=== PATIENT | male | born 1955 | race Caucasian/White ===

== ENCOUNTER 2017-04-27 08:59 | Day surgery (SDC) | payer BC ==
[~2017-04-27 08:59] MED LIST: CEFAZOLIN 2 Gram 2 GM/50 ML BAG IVPB ONE
[2017-04-27] MEDS ORDERED: MECLIZINE 25 MG TABLET PO ONE (09:00)
[2017-04-27] MEDS ORDERED: EPINEPHRINE 1 MG/ML AMPUL SQ ONE (09:00)
[2017-04-27] MEDS ORDERED: ROCURONIUM BROMIDE 50MG/5ML VIAL IV ONE (09:00)
[2017-04-27] MEDS ORDERED: MIDAZOLAM HCL 2MG/2ML VIAL IV ONE (09:00)
[2017-04-27] MEDS ORDERED: NEOSTIGMINE 1 MG/1 ML,10ML VIAL IV ONE (09:00)
[2017-04-27] MEDS ORDERED: EPHEDRINE SULFATE 50 MG/ML ML IV ONE (09:00)
[2017-04-27] MEDS ORDERED: ACETAMINOPHEN 1,000 MG/100 ML BTL IV ONE (09:00)
[2017-04-27] MEDS ORDERED: SEVOFLURANE 250 ML INH ONE (09:00)
[2017-04-27] MEDS ORDERED: PROPOFOL 10 MG/ML VIAL IV ONE (09:00)
[2017-04-27] MEDS ORDERED: FAMOTIDINE 20MG TABLET PO ONE (09:00)
[2017-04-27] MEDS ORDERED: LIDOCAINE 2% MDV (20MG/ML) 20ML VIAL IV ONE (09:00)
[2017-04-27] MEDS ORDERED: METOCLOPRAMIDE 10 MG TABLET PO ONE (09:00)
[2017-04-27] MEDS ORDERED: ONDANSETRON HCL IV 4 MG/2 ML VIAL IVP ONE (09:00)
[2017-04-27] MEDS ORDERED: ROPIVACAINE HCL (NAROPIN) /PF 5MG/ML 20ML VIAL IV ONE (09:00)
[2017-04-27] MEDS ORDERED: FENTANYL PF 100MCG/2ML VIAL IV ONE (09:00)
[2017-04-27] MEDS ORDERED: DEXAMETHASONE 4 MG/ML 1ML VIAL IVP ONE (09:00)
[2017-04-27] MEDS ORDERED: GLYCOPYRROLATE 0.2 MG/ML ML IV ONE (09:00)
[2017-04-27] MEDS ORDERED: SUCCINYLCHOLINE 20 MG/ML 10ML IVP ONE (09:00)
[2017-04-27] MEDS ORDERED: KETOROLAC 30 MG/ML VIAL IVP ONE (09:00)
[2017-04-27 09:40] LABS: BASO % 1.1 % (0-6); EOS % 6.4 % (0-6); GRAN % 49.6 % (47-80); HEMATOCRIT 45.6 % (42.0-52.0); LYMPH % 32.7 % (16-45); MEAN CELL VOLUME 91.6 fl (81-97); MEAN CORPUSCULAR HEMOGLOBIN 30.1 pg (27-33); MEAN CORPUSCULAR HGB CONC 32.9 g/dl (32-36); MEAN PLATELET VOLUME 11.4 fl (7.4-10.4); MONO % 10.2 % (0-9); PLATELET COUNT 204 K/uL (130-400); RED BLOOD COUNT 4.98 M/uL (4.40-5.70); WHITE BLOOD COUNT W/O DIFF 5.5 K/uL (4.2-12.2)
[2017-04-27 09:50] LABS: BLOOD UREA NITROGEN 20 mg/dL (8-23); CREATININE 0.9 mg/dL (0.7-1.2); EST GLOMERULAR FILTRATION RATE > 60 mL/min; GLUCOSE,RANDOM 96 mg/dL (74-109)
--- NOTE | 2017-04-28 12:30 | Operative Note ---
DATE OF SURGERY: 04/27/2017 Surgeon: Ang Quick DO PREOPERATIVE DIAGNOSES: 1. Tear of the right rotator cuff. 2. Impingement syndrome, right shoulder. POSTOPERATIVE DIAGNOSES: 1. Tear of the right rotator cuff. 2. Impingement syndrome, right shoulder. 3. Tear of the biceps tendon, right shoulder. OPERATION: 1. Arthroscopic repair of the right rotator cuff. 2. Arthroscopic subacromial decompression and acromioplasty of the right shoulder. DESCRIPTION OF PROCEDURE: This 61-year-old male was taken to the operating room, placed in the supine position on the operating room table. A general anesthetic was administered and the patient was placed in the beach chair position with all bony prominences well padded and head well secured. The right shoulder was prepped with Hibiclens and draped in the usual sterile fashion. A posterior portal was established in the glenohumeral joint and initial evaluation of the joint demonstrated normal appearance of the articular cartilage. There was a tear of the supraspinatus tendon ripped away from the articular cartilage on the tuberosity and it appeared as though there was a full-thickness defect but we marked this with a suture to be sure. The biceps tendon appeared normal. We probed the previously repaired glenoid labrum and it was very tight and appeared to be satisfactory. We then placed the arthroscope intact he subacromial space. Our previously marked spot was visible on the bursal surface of the rotator cuff. We marked this spot with an Arthrocare wand. Arthroscopic subacromial decompression and acromioplasty was performed, which gave us excellent visualization and we subsequently debrided the tear of the rotator cuff. It appeared to be a full-thickness tear at the anterior margin possibly just if it was not full thickness, it had very few FiberSource remaining. I was convinced that this was indeed a full-thickness defect. The tuberosity was thoroughly debrided of soft tissue. The torn portion of the rotator cuff also thoroughly debrided, and we felt that the patient had reasonably good quality tendon and subsequently we began to repair this tear using an Arthrex speed bridge technique. Two SwiveLock anchors were placed adjacent to the articular cartilage, one at the anterior and one at the posterior margins of the tear with a FiberTape and TigerTape inserted in the anchors, respectively. Subsequently, the anchors were placed followed by the passage of the sutures through the rotator cuff. A single limb of each one of these sutures was then grasped and placed through a third SwiveLock anchor which was placed inferior to the anterior anchor, traction placed on these sutures, and the anchor impaled. The remaining two tails of sutures were grasped and placed through a fourth SwiveLock anchor which was placed inferior to the posterior anchor and again, tractoin placed on the sutures to bring the cuff down to its anatomic position and footprint on the tuberosity. The repair was felt to be satisfactory. The sutures were cut and the wound irrigated and suctioned. The three portals were repaired with 4-0 nylon sutures. Sterile dressings with an UltraSling were applied and the patient was taken to the recovery room in satisfactory condition. GROSS PATHOLOGY: This patient demonstrated what I felt was a full-thickness defect of the supraspinatus tendon. The patient demonstrated evidence of previous repair of his anterior and superior glenoid labrum which was holding normally and was not loose. Thorough subacromial decompression was also performed as described. EARL
== END 2017-04-27 13:19 | disposition home or self-care (01) ==
LOC: SUR 08:59
PROVIDERS: ATTEND Orthopaedic Surgery
DX: M75.121 Complete rotator cuff tear or rupture of right shoulder, not specified as traumatic (principal); M75.41 Impingement syndrome of right shoulder; E78.00 Pure hypercholesterolemia, unspecified
CPT/HCPCS: 29827; 29826; 29828; 01630; 64415; 85025; 80048; 93005; 93010; J1885; J2405; J3010; J0690; J2795; J0171; J0330; J2710

== ENCOUNTER 2019-04-30 05:54 | Day surgery (SDC) | payer BC ==
[2019-04-30] MEDS ORDERED: DEXAMETHASONE 4 MG/ML 1ML VIAL IVP ONE (05:55)
[2019-04-30] MEDS ORDERED: MIDAZOLAM HCL 2MG/2ML VIAL IV ONE (05:55)
[2019-04-30] MEDS ORDERED: ROPIVACAINE HCL (NAROPIN) /PF 5MG/ML 20ML VIAL IV ONE (05:55)
[2019-04-30] MEDS ORDERED: LIDOCAINE 2% MDV (20MG/ML) 20ML VIAL IV ONE (05:55)
[2019-04-30] MEDS ORDERED: PROPOFOL 10 MG/ML VIAL IV ONE (05:55)
[2019-04-30] MEDS ORDERED: CEFAZOLIN 2 Gram 2 GM/50 ML BAG IVPB ONE (06:00)
[2019-04-30] MEDS ORDERED: METOCLOPRAMIDE 10 MG TABLET PO ONE (06:00)
[2019-04-30] MEDS ORDERED: FAMOTIDINE 20MG TABLET PO ONE (06:00)
[2019-04-30] MEDS ORDERED: MECLIZINE 25 MG TABLET PO ONE (06:00)
[2019-04-30] MEDS ORDERED: RINGERS SOLUTION,LACTATED 1,000 ML IV ONE ×2 (06:40→08:00)
[2019-04-30] MEDS ORDERED: TRANEXAMIC ACID 1,000 MG/10 ML ML IVPB ONE (08:35)
[2019-04-30] MEDS ORDERED: ZOLPIDEM TARTRATE 5 MG TABLET PO PRN (10:15)
[2019-04-30] MEDS ORDERED: NALOXONE 0.4 MG/1 ML VIAL IVP PRN (10:15)
[2019-04-30] MEDS ORDERED: ACETAMINOPHEN 325 MG TAB PO PRN (10:15)
[2019-04-30] MEDS ORDERED: AL HYDROX/MAG HYDROX 30ML UD PO PRN (10:15)
[2019-04-30] MEDS ORDERED: SENNOSIDES/DOCUSATE SODIUM UD CAPSULE PO PRN (10:15)
[2019-04-30] MEDS ORDERED: MAGNESIUM HYDROXIDE 30 ML UDC PO PRN (10:15)
[2019-04-30] MEDS ORDERED: DIPHENHYDRAMINE HCL 25 MG CAPSULE PO PRN (10:15)
[2019-04-30] MEDS: RINGERS SOLUTION,LACTATED 1,000 ML IV SCH (11:00)
[2019-04-30] MEDS: HYDROMORPHONE HCL 2 MG/ML VIAL IV PRN ×2 (13:10→13:47)
[2019-04-30] MEDS: OXYCODONE HCL/APAP 5MG/325MG TABLET PO PRN (14:41)
--- NOTE | 2019-04-30 15:36 | Rehab Evaluation ---
Patient Information - Patient Information Diagnosis: R knee DJD Ordered Treatment: PT Evaluate and Treat Status: Initial Evaluation Surgery: Yes (R TKA) Date of Surgery: 04/30/19 Past Medical/Surgical Hx: PAST MEDICAL/SURGICAL HISTORY Past Surgical History RIGHT RTC REPAIR bilat knee scope; left knee scope again; left shoulder scope with rotator cuff repair; double hernia repair;rt inguinal hernia repair; left total knee replacement;colonoscopy PMH - Respiratory Hx Respiratory Disorders No Hx Sleep Apnea ? Comment: INSOMNIA PMH - Cardiovascular Hx Cardiovascular Disorders No Exercise Tolerance Good Comment: HYPERLIPIDEMIA PMH - Neuro Hx Neurological Disorders No PMH - GI Hx Gastrointestinal Disorders Yes Hx Diverticulitis Yes: diverticulosis Hx Gastroesophageal Reflux Yes: omeprozole Hx Liver Disease Yes: HX OF FROM SULFA Hx Weight Loss/Weight Gain Yes: 25 LB LOSS OVER LAST 10 MONTHS PMH - Hx Genitourinary Disorders No Hx Bladder Problem Yes: NOCTURIA LESS SINCE ON DAILY CIALIS Hx Prostate Problems Yes: BPH PMH - Endocrine Hx Endocrine Disorders No PMH - Musculoskeletal Hx Musculoskeletal Disorders Yes Hx Arthritis Yes: all over Comment: rt shoulder torn rotator cuff PMH - Psych Hx Psychiatric Problems No PMH - Hematology/Oncology Hx Hematology/Oncology No Disorders Premorbid Status: Detail (The patient was independent with all mobility prior to surgery.) Social History: Detail (The patient lives with spouse in a one story house with 3 steps at the enterance with one hand rail. The bathroom is equipped with: tub/shower combination, shower stool, elevated toilet. Grab bars are present by tub but not toilet. The patient has a front wheeled walker.) Precautions: [place], Fall, Other (WBAT on the R LE) - Time With Patient Total Time Spent With Patient (Min): 30 Treatment Procedures: Detail (Initial Evaluation, low complexity) Subjective Information - Subjective Information Per Patient (The patient had minimal complaints of R knee pain and did not rate his pain using 0-10 pain scale.) Objective Data - Mental Status Patient Orientation: Oriented x3 - Visual Perception Appears within normal limits for therapeutic activities - ROM Not within normal limits (The patient's R knee AROM is limited s/p surgery. All other AROM is WNL.) - Strength/Tone Not within normal limits (The patient's LE strength was not tested however is functional.) - Bed Mobility Independent (The patient is indpendent with supine to and from sit transfer and scooting up in bed.) - Transfers Independent (The patient was independent with sit to and from stand transfer.) - Balance Balance Sitting: Good Balance Standing: Good - Sensation Intact - Gait Detail (The patient ambulated with front wheeled walker WBAT on the R LE a distance of 85 feet x 1 with supervision for safety only.) Therapy Assessment - Therapy Assessment Detail (The patient was independent with bed mobility, transfers and supervision for safety only with ambulation. The patient will be seen for one to two visits to complete inpt. PT goals.) Problem List - Problem List Physical Therapy Problem List: Detail (1) Decreased R knee AROM 2) Decreased R LE strength) Goals - Goals Physical Therapy Goals: 1) The patient will ambulate on stairs with supervision for safety using proper technique. 2) The patient will be independent with TKA HEP. Prognosis - Prognosis Good Plan - Plan Physical Therapy Plan: PT 1-2 visits for gait training on stairs and instruction in HEP.
[2019-04-30] MEDS: CEFAZOLIN 2 Gram 2 GM/50 ML BAG IVPB SCH (15:48)
[2019-04-30] MEDS ORDERED: FONDAPARINUX 2.5 MG/0.5 ML SYR SQ SCH (16:00)
[2019-04-30] MEDS: HYDROCODONE/APAP 5/325MG TABLET PO PRN (18:50)
[2019-04-30] MEDS ORDERED: SIMVASTATIN 20 MG TABLET PO SCH (22:00)
[2019-04-30] MEDS: ASPIRIN 325 MG TAB ENTERIC-COATED PO SCH (22:51)
[2019-05-01] MEDS: OXYCODONE HCL/APAP 5MG/325MG TABLET PO PRN (00:21)
[2019-05-01] MEDS: CEFAZOLIN 2 Gram 2 GM/50 ML BAG IVPB SCH ×2 (00:22→06:45)
[2019-05-01] MEDS: RINGERS SOLUTION,LACTATED 1,000 ML IV SCH (05:35)
[2019-05-01] MEDS ORDERED: PANTOPRAZOLE SODIUM 40 MG TABLET PO SCH (07:00)
[2019-05-01] MEDS: ASPIRIN 325 MG TAB ENTERIC-COATED PO SCH (09:08)
[2019-05-01] MEDS: HYDROCODONE/APAP 5/325MG TABLET PO PRN (09:09)
--- NOTE | 2019-05-01 09:35 | Rehab Evaluation ---
Patient Information - Patient Information Diagnosis: R knee DJD Ordered Treatment: OT Evaluate and Treat Status: Initial Evaluation Surgery: Yes (R TKA) Date of Surgery: 04/30/19 Past Medical/Surgical Hx: PAST MEDICAL/SURGICAL HISTORY Past Surgical History RIGHT RTC REPAIR bilat knee scope; left knee scope again; left shoulder scope with rotator cuff repair; double hernia repair;rt inguinal hernia repair; left total knee replacement;colonoscopy PMH - Respiratory Hx Respiratory Disorders No Hx Sleep Apnea ? Comment: INSOMNIA PMH - Cardiovascular Hx Cardiovascular Disorders No Exercise Tolerance Good Comment: HYPERLIPIDEMIA PMH - Neuro Hx Neurological Disorders No PMH - GI Hx Gastrointestinal Disorders Yes Hx Diverticulitis Yes: diverticulosis Hx Gastroesophageal Reflux Yes: omeprozole Hx Liver Disease Yes: HX OF FROM SULFA Hx Weight Loss/Weight Gain Yes: 25 LB LOSS OVER LAST 10 MONTHS PMH - Hx Genitourinary Disorders No Hx Bladder Problem Yes: NOCTURIA LESS SINCE ON DAILY CIALIS Hx Prostate Problems Yes: BPH PMH - Endocrine Hx Endocrine Disorders No PMH - Musculoskeletal Hx Musculoskeletal Disorders Yes Hx Arthritis Yes: all over Comment: rt shoulder torn rotator cuff PMH - Psych Hx Psychiatric Problems No PMH - Hematology/Oncology Hx Hematology/Oncology No Disorders Premorbid Status: Detail (The patient was independent with all mobility prior to surgery. He and spouse share all home mgmt, meal prep and laundry tasks.) Social History: Detail (The patient lives with spouse in a one story house with 3 steps at the entrance with one hand rail. The bathroom is equipped with: tub/shower combination, shower seat, hand held shower and an elevated toilet. Grab bars are present by tub but not toilet. The patient has a front wheeled walker.) Precautions: [place], Fall, Other (WBAT on the R LE) - Time With Patient Total Time Spent With Patient (Min): 35 Treatment Procedures: Detail (OT eval low complexity) Subjective Information - Subjective Information Per Patient Objective Data - Pain Pain Present: Yes (06/24) - Mental Status Patient Orientation: Oriented x3 - Visual Perception Appears within normal limits for therapeutic activities - ROM Within normal limits (Jan UE AROM WNL) - Strength/Tone Within normal limits (Jan UE strength WNL) - Coordination Appears within normal limits for therapeutic activities - Bed Mobility Independent (Ind with supine to sit) - Transfers Independent (Ind with sit to stand from EOB and chair heights.) - Balance Balance Sitting: Good Balance Standing: Good - Sensation Intact - Gait Detail (Pt ambulating in room with 2 wheeled walker and supervision.) - ADL's/IADL's Detail (Pt educated and able to demonstrate learning of modified LE dressing techniques including doffing slipper socks and briefs and donning boxer shorts, shorts and tennis shoes. Reviewed kitchen and shower safety and modifications, pt verbalized understanding.) Therapy Assessment - Therapy Assessment Detail (Pt is Ind with modified LE dressing techniques.) Problem List - Problem List Physical Therapy Problem List: Detail (1) Decreased R knee AROM 2) Decreased R LE strength) Occupational Therapy Problem List: Detail (No current IP OT problems identified.) Goals - Goals Physical Therapy Goals: 1) The patient will ambulate on stairs with supervision for safety using proper technique. 2) The patient will be independent with TKA HEP. Occupational Therapy Goals: No current IP OT goals identified. Prognosis - Prognosis Good Plan - Plan Physical Therapy Plan: PT 1-2 visits for gait training on stairs and instruction in HEP. Occupational Therapy Plan: Pt is discharged from IP OT at this time. Thank you for this referral.
--- NOTE | 2019-05-01 10:02 | Operative Note ---
DATE OF SURGERY: 04/30/2019 SURGEON: Ang Quick D.O. REFERRING PHYSICIAN: Aly Best D.O. PREOPERATIVE DIAGNOSIS: OSTEOARTHRITIS OF THE RIGHT KNEE. POSTOPERATIVE DIAGNOSIS: OSTEOARTHRITIS OF THE RIGHT KNEE. OPERATION: RIGHT TOTAL KNEE ARTHROPLASTY. This 63-year-old male was taken to the Operating Room and placed in the supine position on the operating room table. Spinal anesthesia was induced by the Department of Anesthesia. The right lower extremity was then elevated, it was prepped with Hibiclens, and draped in the usual sterile fashion. It was exsanguinated and the tourniquet was inflated to 300 mmHg. All scrub personnel wore personal isolation suites. An anterior longitudinal midline incision was made followed by a medial parapatellar arthrotomy incision. An intercondylar drill hole was made for the intramedullary alignment conrad and a 9 mm 6 degree valgus cut was made on the distal femur and a wafer of bone was removed. A sizing jig was then affixed and a size 67.5 was seen to be the appropriate size in the anteroposterior dimension, but slightly too narrow in the mediolateral direction. We elected to place the 67 and therefore the 4-in-1 cutting block was pinned in 3 degrees of external rotation and the appropriate cuts were made and the wafers of bone were removed. We then directed our attention to the proximal tibia and an extramedullary alignment guide was used to cut the proximal tibia referencing a 10 mm cut off the lateral tibial plateau. This allowed to cut below the subchondral bone on the medial side of the joint, therefore, when the alignment was checked and we started to cut we found that this actually was not deep enough and an additional 2 mm were taken which gave us an excellent cut. The remnants of the menisci and osteophytes were then removed from the posterior aspect of the joint and the tibia was sized to a size 79. A stem punch was used. We then directed our attention to the patella and a cut was made on the patella and restored to within 1 mm of anatomic height with 37 x 10 mm trial. The knee was taken through range of motion with the trial components in place. A 10 mm bearing was seen to be too thin and we tried an 11 and subsequently a 12 which gave us the best fit, excellent stability throughout the full range of motion with no instability on full extension. All trial components were then removed and the wound copiously irrigated with pulse lavage lactated Ringer's solution, all bony surfaces were dried and excess cement was removed after the insertion of each component. Initially the tibial baseplate was cemented into place followed by the insertion of the tibial bearing, the femoral component and finally the patella. Once the cement had hardened, the knee was again taken through range of motion and found to be stable. A drain was placed through a separate stab incision, the wound again copiously irrigated with lactated Ringer's solution, the arthrotomy incision was closed with #2 Vicryl, the subcutaneous tissue was closed with 0 Vicryl, the skin was stapled, sterile dressings with Polar Care were applied, and the patient was taken to the Recovery Room in satisfactory condition. GROSS PATHOLOGY: Severe full thickness medial compartment osteoarthritis was present and lateral compartment showing Grade 2 changes. FINAL COMPONENTS INSERTED: [employer] Vanguard size 67.5 cruciate retaining femur, size 79 tibial baseplate, a size 37 x 10 mm patella was used and the tibial bearing was a 12 mm anterior stabilized E1 bearing. JOB NUMBER: [id number] [facility]
--- NOTE | 2019-05-01 11:42 | Physical Therapy Tx Note ---
Physical Therapy Tx Note - Treatment Note Tolerated: Good Total Time Spent With Patient: 35 Physical Therapy Tx Note: Detail (Patient was seated in chair upon FINISHED GARMENT INSPECTOR arrival. Patient states 4/10 pain in right knee. Patient transferred sit to and from stand SBA x1. Patient ambulated 364 feet with wheeled walker SBA x1. Patient descended and ascended 3 steps using stairwell railing and walker CGA x1. Patient transferred sit to supine independently. Patient scooted up in bed independently with using trapeze. Patient performed the following exercises x10 reps each: quad sets, glut squeezes, heel slides, SLR with strap assist, ankle pumps, and hamstring sets. Patient tolerated treatment well. Patient displays good understanding of ambulation with walker, stair climbing, and HEP. Patient was left reclined in bed with call light within reach. Patient discharged from inpatient PT at this time as all goals are met.) Physical Therapy Problem List: Detail (1) Decreased R knee AROM 2) Decreased R LE strength) Physical Therapy Goals: 1) The patient will ambulate on stairs with supervision for safety using proper technique. Met. 2) The patient will be independent with TKA HEP. Met. Prognosis: Good Physical Therapy Plan: Patient discharged from inpatient PT at this time as all goals are met.
--- NOTE | 2019-05-02 09:43 | Discharge Summary ---
DATE OF ADMISSION: 04/30/2019 DATE OF DISCHARGE: 05/01/2019 ADMITTING DIAGNOSIS: OSTEOARTHRITIS OF THE RIGHT KNEE. DISCHARGE DIAGNOSIS: OSTEOARTHRITIS OF THE RIGHT KNEE. OPERATIVE PROCEDURE: RIGHT TOTAL KNEE ARTHROPLASTY. This 63-year-old male was admitted to the hospital for total knee arthroplasty and tolerated the operative procedure well and cleared physical therapy and was ready for discharge on the first postoperative day. The drain had been removed. The patient had no shortness of breath or chest pain. No sign of DVT. The calf was soft. He is scheduled to have outpatient physical therapy. He was instructed to use his CHRISTAL hose during the day and remove them at night. He will take [place] 5/325, he was given 40 to take one every six hours as necessary for pain and aspirin 325 mg daily for a month. Routine wound care instructions were given. He will follow-up in the clinic on 05/13/2019 for reevaluation. Should he have any problems prior to being seen he was instructed to call my office. JOB NUMBER: [id number] [facility]
== END 2019-05-01 13:10 | disposition home or self-care (01) ==
LOC: SUR 05:54 → MEDSURG 09:39 → SUR 05-01 13:10
PROVIDERS: ATTEND Orthopaedic Surgery
DX: M17.11 Unilateral primary osteoarthritis, right knee (principal); E78.00 Pure hypercholesterolemia, unspecified; N40.0 Benign prostatic hyperplasia without lower urinary tract symptoms; K21.9 Gastro-esophageal reflux disease without esophagitis
CPT/HCPCS: 27447; 01402; 64447; 94010; J1170; J0690 ×2; J1652; J2795; 76942; J7120